=== PATIENT | male | born 1975 | race Caucasian/White ===

== ENCOUNTER 2019-01-03 21:33 | Emergency (ER) | payer SELFPAY ==
[~2019-01-03] VITALS: Ht 167.6 cm; Wt 83.2 kg
--- NOTE | 2019-01-03 21:55 | NUR ---
Pt resting on gurney, sitting upright, speaking in full sentences. Pt states that he feels like he is having trouble taking deep breaths in, left lower lobe decreased lung sounds. RA O2 sat of 95%. 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 Pt reports that he has just restarted working out appx 2 weeks ago when this pain started, but states it doesn't feel muscular. Pt advised to remove his pants for MD exam.
[2019-01-03] MEDS ORDERED: ASPI-650 PO (22:02)
[2019-01-03] MEDS ORDERED: BUPR1PAT8 TD (22:02)
[2019-01-03] MEDS ORDERED: DULO60CA7 PO (22:02)
[2019-01-03 22:33] LABS: BASOPHILS # (AUTO) 0.02 x10^3/uL (0-0.1); BASOPHILS % (AUTO) 0 % (0-1); EOSINOPHILS # (AUTO) 0.17 x10^3/uL (0-0.4); EOSINOPHILS % (AUTO) 3 % (1-7); LYMPHOCYTES # (AUTO) 2.49 x10^3/uL (1-3.4); LYMPHOCYTES % (AUTO) 39 % (22-44); MD NO; MEAN CORPUSCULAR HEMOGLOBIN 30.1 pg (27.5-34.5); MEAN CORPUSCULAR HGB CONC 34.7 g/dL (33.2-36.2); MEAN CORPUSCULAR VOLUME 86.8 fL (81-97); MEAN PLATELET VOLUME 8.8 fL (7.4-10.4); MONOCYTES # (AUTO) 0.49 x10^3/uL (0.2-0.8); MONOCYTES % (AUTO) 8 % (2-9); NEUTROPHILS % (AUTO) 51 % (42-75); PLATELET COUNT 233 x10^3/uL (130-400); RED CELL DISTRIBUTION WIDTH 13.3 % (9.4-14.8)
[2019-01-03 22:46] LABS: D-DIMER 0.5 ug/mlFEU (0.00-0.52); INTERNATIONAL NORMALIZED RATIO 1.03 (0.93-1.1); PROTHROMBIN TIME 10.9 Seconds (9.6-11.5)
--- NOTE | 2019-01-03 22:50 | NUR ---
Pt resting on heather, aware that we are awaiting lab results and that MD will be in to discuss ED findings when results are up. Pt with no concern/complaint for RN at this time.
[2019-01-03 22:55] LABS: ALANINE AMINOTRANSFERASE 44 U/L (12-78); ALBUMIN 3.5 g/dL (3.4-5.0); CALCIUM 8.2 mg/dL (8.5-10.1); CREATININE 0.84 mg/dL (0.7-1.3)
[2019-01-03 23:11] LABS: ALKALINE PHOSPHATASE 137 U/L (45-117); ANION GAP 7 mmol/L (5-15); BILIRUBIN,TOTAL 0.4 mg/dL (0.2-1.0); CHLORIDE 105 mmol/L (98-107); TOTAL PROTEIN 8.2 g/dL (6.4-8.2)
[2019-01-04 00:02] VITALS: BP 116/69
--- NOTE | 2019-01-04 00:03 | NUR ---
Patient/Caregiver given discharge instructions and they have confirmed that they understand the instructions. Patient ambulatory with steady gait.
== END 2019-01-04 00:04 | disposition home or self-care (01) ==
LOC: ED 23:05
DX: R55 Syncope and collapse (principal); R06.02 Shortness of breath
CPT/HCPCS: 36415; 71045; 80053; 83880; 84484; 85025; 85379; 85610; 85730; 93005; 99284